=== PATIENT | female | born 1995 | race Caucasian/White ===

== ENCOUNTER 2019-08-28 09:07 | Emergency (ER) | payer OTHER, SELFPAY ==
[~2019-08-28] VITALS: Ht 157.5 cm; Wt 77.1 kg
--- NOTE | 2019-08-28 09:11 | NUR ---
Pt at tent
[2019-08-28 09:14] VITALS: BP 139/99
--- NOTE | 2019-08-28 09:20 | NUR ---
C/O SORE THROAT,RG,BODY ACHE,COUGH X YESTERDAY. TEMP 98.2, O2 SAT 99%, P 113 AT THIS TIME. MED HX: DENIES
--- NOTE | 2019-08-28 09:26 | NUR ---
Patient being evaluated by DR HOPKINS at [facility].
--- NOTE | 2019-08-28 09:30 | NUR ---
COVID SWAB DONE.
[2019-08-28] MEDS ORDERED: ACETAMINOPHEN EXTRA STRENGTH 500 MG TAB PO ONE (09:35)
[2019-08-28] MEDS ORDERED: DEXAMETHASONE 4 MG/ML VIAL PO ONE (09:35)
[2019-08-28] MEDS ORDERED: LIDOCAINE VISCOUS 2% 20 ML UDC PO ONE (09:35)
[2019-08-28] MEDS ORDERED: DEXAMETHASONE 4 MG/ML VIAL ONE (09:36)
[2019-08-28 09:52] VITALS: BP 139/99
--- NOTE | 2019-08-28 09:52 | NUR ---
Patient discharged with v/s stable. Written and verbal after care instructions given and explained. Patient alert, oriented and verbalized understanding of instructions. Ambulatory with steady gait. All questions addressed prior to discharge. ID band removed. Patient advised to follow up with PMD. Rx of AUGMENTIN, MOLTRIN & CEPACOL given. Patient educated on indication of medication including possible reaction and side effects. Opportunity to ask questions provided and answered.
--- NOTE | 2019-08-29 18:12 | NUR ---
LAB CALLED RECIEVED BY JUAN IYER. PT RESULT FOR COVID 19 POSITIVE RELAYED TO. PT RESULT FORWARDED TO THE [facility].
== END 2019-08-28 09:52 | disposition home or self-care (01) ==
LOC: EEVIPCON 09:07 → MED 09:07
DX: U07.1 COVID-19 (principal); J02.8 Acute pharyngitis due to other specified organisms
CPT/HCPCS: 99283; J1100; U0003; 99284